=== PATIENT | female | born 1940 | race Two or more races ===

== ENCOUNTER 2024-04-20 06:17 | Day surgery (SDC) | payer OTHER, SELFPAY ==
[2024-04-14 10:24] VITALS: BMI 22.7
[2024-04-14 10:39] LABS: % Basophils 0.4 % (0-2); % Eosinophils 1.6 % (0-6); % Immature Granulocytes 0.2 % (0-0.5); % Lymphocytes 22.5 % (20.5-51.1); % Monocytes 8.3 % (1.7-9.3); Absolute Eosinophils 0.1 10^3/uL (0-0.7); Absolute Lymphocytes 1.1 10^3/uL (1.2-3.4); Absolute Monocytes 0.4 10^3/uL (0.1-0.6); Absolute Neutrophils 3.4 10^3/uL (1.4-6.5); Hematocrit 34.9 % (37.0-47.0); Hemoglobin 11.9 g/dL (12.0-16.0); Mean Corp Hgb Conc. 34.1 g/dL (33.0-37.0); Mean Corpuscular Volume 79.3 fL (81.0-99.0); Mean Platelet Volume 9.6 fL (7.4-10.4); Nucleated Red Blood Cells % 0 %; Platelet Count 232 10^3/uL (130-400); Red Cell Dist. Width 15.3 % (11.5-14.5); White Blood Cell Count 5.1 10^3/uL (4.8-10.8)
[2024-04-14 11:23] LABS: ALT (SGPT) 23 U/L (0-35); AST (SGOT) 34 U/L (14-36); Albumin 4.7 g/dl (3.5-5.0); Alkaline Phosphatase 87 U/L (38-126); Blood Urea Nitrogen 16 mg/dl (7-17); Carbon Dioxide 27 mmol/L (22-30); Chloride 97 mmol/L (98-107); Estimated Creatinine Clearance 43 ml/min; Glucose 114 mg/dl (70-99); Sodium 132 mmol/L (135-145); Total Bilirubin 0.5 mg/dl (0.2-1.3); Total Protein 7.3 g/dl (6.3-8.2); eGFR > 60.00
[2024-04-20] VITALS (18 sets, daily range): BP systolic 120–192; BP diastolic 55–69
[2024-04-20] MEDS: NSS 158 ML IV (07:12)
[2024-04-20 07:56] LABS: ACT-LR - POC 303 Seconds (116-155)
--- NOTE | 2024-04-20 08:32 | ITS.CL.CATH ---
[facility] [facility] - Catheterization
Cardiac Catheterization
Procedure Report:
CARDIAC CATHETERIZATION REPORT
Date of Procedure: 04/20/2024
Referring: Dheeraj Fulton DO
Indication: Angina with ischemic stress test (inferolateral ischemia)
�
HEMODYNAMIC DATA
AO: 167/74
LVEDP 14
�
LEFT VENTRICULOGRAPHY: Normal segmental wall motion with EF 58%
�
CORONARY ANGIOGRAPHY
Dominance: Right
Left Main: Normal
LAD: 20% mid LAD stenosis with otherwise mild luminal irregularities in the LAD proper. The large first diagonal branch has tandem 30% proximal stenoses.
Circumflex: There is a medium sized ramus intermedius branch with mild luminal disease. The circumflex has focal 80-90% stenosis distal to the takeoff of a tiny OM1 and proximal to the takeoff of a large branching OM 2. The circumflex continues in
the AV groove to terminate with several small to medium sized posterolateral branches. There is 50% stenosis in the distal circumflex just distal to the takeoff of the large OM 2.
RCA: Dominant vessel with trivial luminal irregularities
Angioplasty: At the conclusion of the diagnostic study we proceeded with intervention to treat the focal 80-90% mid circumflex stenosis. Heparin was used for anticoagulation. Plavix 600 mg was administered at the procedure conclusion. A 5 [place]
EBU 3.5 guide catheter was used. A BMW wire was easily passed through the lesion into the large OM 2. Direct stenting with a 3.25 x 12 Xience JAVI deployed at 15 brandon was followed by postdilatation with a 3.5 NC Euphora to 16 brandon. The final
angiographic result was outstanding. There were no procedural complications.
�
Closure Device: None-the procedure was performed via the right radial artery. The Stuart's test was normal prior to the procedure.
�
Radiation (mGy): 136
DAP (cm2.Gy): 12.4
Fluoroscopy time: 4.0 minutes
�
CONCLUSIONS
1:�Systemic hypertension
2:�Normal left ventricular function with EF 58%
3. Single-vessel CAD as described involving the left circumflex
4. Successful stenting of focal 80-90% mid circumflex stenosis using 3.25 x 12 Xience JAVI postdilated with 3.5 mm noncompliant balloon
5. Recommend dual antiplatelet therapy for 6-12 months and continued aggressive risk factor modification efforts
�
�
Copy to: Dheeraj Fulton DO, Opal Yates DO ([place], [place])
�
Nolberto Espinal MD, FACC, [facility]
[2024-04-20 13:26] LABS: Urine Albumin Negative (Neg - Trace); Urine Bilirubin Negative (Negative); Urine Character Clear (Clear); Urine Color Yellow; Urine Glucose Negative (Negative); Urine Ketone Negative (Negative); Urine Leukocyte 2+ (Negative); Urine Nitrite Positive (Negative); Urine Occult Blood Trace (Negative); Urine Urobilinogen Negative (Neg - 1+)
--- NOTE | 2024-04-20 13:29 | W.PN.UPDATE ---
Addendum entered and electronically signed by MATTI Iyer 04/22/24 09:07:
UA micro came back as gram neg bacilli, I sent script for nitrofurantoin 100mg bid x 5 days. I called and left message for Ms. Sanchez and she is to call back to verify she got the message.
Original Note:
Update Note
Progress Note Update
83 yo WF s/p PCI LCx x1 (same day). She feels good, no cp, sob, inna diet, EKG SR no ST changes, R Rad site c/d/i. She denies dysuria but had foul smelling incontinent episode and a UA was sent. She will be on DAPT ASA/Plavix. Cardiac rehab c/s. She
will switch her nexium for Protonix. Activity restrictions reviewed. She will f/u Dr. Fulton office in 2 weeks. She is for d/c home after 1pm.
CONCLUSIONS
1:�Systemic hypertension
2:�Normal left ventricular function with EF 58%
3. Single-vessel CAD as described involving the left circumflex
4. Successful stenting of focal 80-90% mid circumflex stenosis using 3.25 x 12 Xience JAVI postdilated with 3.5 mm noncompliant balloon
5. Recommend dual antiplatelet therapy for 6-12 months and continued aggressive risk factor modification efforts
�
�
Copy to: Dheeraj Fulton DO, Opal Yates DO ([place], [place])
[2024-04-20 14:09] LABS: Urine Amorphous Seen; Urine Mucus Few
[2024-04-20 14:11] LABS: Urine Bacteria Many (Negative); Urine Red Blood Cell 0-2 /HPF (0-2)
== END 2024-04-20 13:20 | disposition home or self-care (01) ==
LOC: CATH 06:17
PROVIDERS: Nurse Practitioner; ATTENDING PHYSICIAN Internal Medicine Cardiovascular Disease; FAMILY PHYSICIAN Family Medicine; OTHER PHYSICIAN Internal Medicine Cardiovascular Disease
DX: I25.119 Atherosclerotic heart disease of native coronary artery with unspecified angina pectoris (principal); I10 Essential (primary) hypertension; E78.5 Hyperlipidemia, unspecified; Z82.49 Family history of ischemic heart disease and other diseases of the circulatory system; E03.9 Hypothyroidism, unspecified; K21.9 Gastro-esophageal reflux disease without esophagitis; D64.9 Anemia, unspecified; I44.7 Left bundle-branch block, unspecified; Z79.82 Long term (current) use of aspirin; Z79.890 Hormone replacement therapy; Z79.899 Other long term (current) drug therapy; Z88.0 Allergy status to penicillin; Z88.2 Allergy status to sulfonamides; Z91.048 Other nonmedicinal substance allergy status; Z79.02 Long term (current) use of antithrombotics/antiplatelets
CPT/HCPCS: 36415; 80053; 81003; 81015; 85025; 85347; 87077; 87086; 93005; 93458; C1725; C1769; C1874; C1894; C9600; Q9967